=== PATIENT | female | born 1990 | race African-American/Black ===

== ENCOUNTER 2022-08-02 13:50 | Emergency (ER) | payer OTHER ==
[2022-08-02 14:02] VITALS: RESP 18; BMI 21.6
[2022-08-02 17:42] LABS: CALCIUM 9.4 mg/dL (8.5-10.1)
[2022-08-02 17:43] LABS: BLOOD UREA NITROGEN 10.3 mg/dL (7-18); MAGNESIUM 2.2 mg/dL (1.8-2.4)
[2022-08-02 17:45] LABS: CREATININE 0.7 mg/dL (0.55-1.3)
[2022-08-02 17:46] LABS: PHOSPHOROUS 3.2 mg/dL (2.5-4.9)
[2022-08-02 17:48] LABS: BILIRUBIN,TOTAL 0.6 mg/dL (0.2-1); TOT PROT 7.7 g/dl (6.4-8.2)
[2022-08-02] MEDS ORDERED: POTASSIUM CHLORIDE TABS 20 MEQ TABLET.ER (FP) PO ONE ×2 (18:40→19:13)
[2022-08-02 20:12] VITALS: BP 118/85; PULSE 82; TEMP 98
== END 2022-08-02 20:23 | disposition home or self-care (01) ==
LOC: JER 13:50
DX: F32.1 Major depressive disorder, single episode, moderate (principal)
CPT/HCPCS: 80053; 80307; 83735; 84100; 84443; 99283-25